=== PATIENT | female | born 1975 | race Caucasian/White ===

== ENCOUNTER → 2017-02-28 | Outpatient (CLI) | payer BC ==
[~2017-02-28] MED LIST: ACYC200C PO; AMOX500T2 PO; ASCO500C16 PO; ASPI1TAB7 PO; BIOT25008; CALC500T7; DOCU-168 PO; ESTR1PAT4 TD; ETAN25KI2; FEXO1TAB11 PO; FOLI20CA; GABA100C PO; HYDR200T4 PO; IBUP200C42 PO; LEVA0.6320 AEROSOL; MULT-1175; MUPI15CR12 TOP; ONDA4TAB4 PO; PRED5TAB44; RANI150T7 PO; SULF500T8 PO; TRAM50TA4 PO
== END ==
LOC: LAB 13:09
PROVIDERS: ATTEND Internal Medicine
DX: M35.00 Sjogren syndrome, unspecified (principal)
CPT/HCPCS: 84443